=== PATIENT | male | born 1950 | race Caucasian/White ===

== ENCOUNTER 2022-07-08 08:03 | Inpatient (IN) | payer MEDICARE, MEDICAID ==
[~2022-07-08] VITALS: Ht 182.9 cm; Wt 95.8 kg
[~2022-07-08 08:03] MED LIST: ASPI1TAB20 PO; Atorvastatin Calcium PO; HYDR25TA4 PO; LISI-716 PO; MET25T PO
[2022-07-08] MEDS ORDERED: FUROSEMIDE 40 MG/4 ML VIAL IV ONE (08:45)
[2022-07-08 09:41] LABS: Basophils # (auto) 0.1 10 ^3/uL (0-0.2); Basophils % (auto) 0.9 % (0.0-2.0); Eosinophils # (auto) 0.3 10 ^3/uL (0-0.8); Eosinophils % (auto) 3.9 % (0.0-7.0); Hematocrit 31.4 % (41.0-53.0); Hemoglobin 10.5 g/dL (13.5-17.5); Lymphocytes # (auto) 0.5 10 ^3/uL (0.4-5.4); Lymphocytes % (auto) 7.6 % (10.0-50.0); Mean Corpuscular Hgb Conc. 33.5 g/dL (32.0-36.0); Mean Corpuscular Volume 92.4 fL (80.0-100.0); Monocytes # (auto) 0.9 10 ^3/uL (0-1.3); Monocytes % (auto) 13.3 % (0.0-12.0); Neutrophils # (auto) 5.1 10 ^3/uL (1.6-8.6); Neutrophils % (auto) 74.3 % (37.0-80.0); Red Blood Cells 3.39 10^6/uL (4.5-5.90); Red Cell Distribution Width 14.9 % (11.8-14.3); White Blood Cell 6.8 10^3/uL (4.4-10.8)
[2022-07-08 09:55] LABS: Albumin 3.2 g/dL (3.4-5.0); Calcium 8.1 mg/dL (8.5-10.1); Magnesium 2.6 mg/dL (1.6-2.6)
[2022-07-08 10:34] LABS: Bilirubin, Total 0.9 mg/dL (0.2-1.0); Total Protein 6.3 g/dL (6.4-8.2)
[2022-07-08] MEDS ORDERED: DEXTROSE (50%) 50ML SYRG IV PRN (13:30)
[2022-07-08] MEDS ORDERED: MORPHINE SULFATE INJ 2 MG/ml SYRG IV PRN (13:30)
[2022-07-08] MEDS ORDERED: ONDANSETRON HCL 4 MG/2 ML VIAL IV PRN (13:30)
[2022-07-08] MEDS: CLINDAMYCIN 300MG IV 50 ML IV SCH ×2 (14:00→22:21)
[2022-07-08] MEDS ORDERED: hydrALAZINE HCL 20 MG/ML VL IV PRN (15:45)
[2022-07-08] MEDS: InsuLIN REG 1unit/0.01ml Soln (100units/ml) SC SCH ×2 (17:00→22:00)
[2022-07-08] MEDS: ACCU-CHEK COMFORT CURVE STRIP VI SCH ×2 (17:12→22:22)
[2022-07-08] MEDS: NITROGLYCERIN 0.4 MG SL TAB SL PRN (20:19)
[2022-07-08] MEDS: ENOXAPARIN SOD 120 MG/0.8 ML SYRINGE SC SCH (21:05)
[2022-07-08] MEDS: METOPROLOL TARTRATE 25 MG TAB PO SCH (22:22)
[2022-07-08] MEDS: HYDROcodone-ACET 5/325MG TAB PO PRN (22:25)
[2022-07-08] MEDS: ATORVASTATIN 20 MG TAB PO SCH (22:25)
[2022-07-08 22:41] VITALS: BP 155/77
[2022-07-08] MEDS ORDERED: APIX5TAB PO (23:44)
[2022-07-09 05:00] VITALS: BP 126/58
[2022-07-09] MEDS: CLINDAMYCIN 300MG IV 50 ML IV SCH ×3 (05:35→21:44)
[2022-07-09 06:07] LABS: Basophils # (auto) 0.1 10 ^3/uL (0-0.2); Basophils % (auto) 1.2 % (0.0-2.0); Eosinophils # (auto) 0.4 10 ^3/uL (0-0.8); Eosinophils % (auto) 6.9 % (0.0-7.0); Hematocrit 30.4 % (41.0-53.0); Hemoglobin 10.4 g/dL (13.5-17.5); Lymphocytes # (auto) 0.5 10 ^3/uL (0.4-5.4); Lymphocytes % (auto) 9.8 % (10.0-50.0); Mean Corpuscular Hemoglobin 31.5 pg (28.0-32.0); Mean Corpuscular Hgb Conc. 34.2 g/dL (32.0-36.0); Mean Corpuscular Volume 92.1 fL (80.0-100.0); Monocytes # (auto) 0.8 10 ^3/uL (0-1.3); Monocytes % (auto) 14.1 % (0.0-12.0); Neutrophils # (auto) 3.8 10 ^3/uL (1.6-8.6); Nucleated Red Blood Cells % 0.1 %; Red Cell Distribution Width 14.8 % (11.8-14.3); White Blood Cell 5.6 10^3/uL (4.4-10.8)
[2022-07-09] MEDS: ACCU-CHEK COMFORT CURVE STRIP VI SCH ×4 (06:09→21:39)
[2022-07-09] MEDS: InsuLIN REG 1unit/0.01ml Soln (100units/ml) SC SCH ×4 (06:09→21:40)
[2022-07-09 06:31] LABS: Albumin 3.1 g/dL (3.4-5.0); BUN/Creatinine Ratio 20.3; Magnesium 2.7 mg/dL (1.6-2.6); Potassium 4.1 mmol/L (3.5-5.1)
[2022-07-09 06:34] LABS: Bilirubin, Total 0.8 mg/dL (0.2-1.0); Total Protein 6.1 g/dL (6.4-8.2)
[2022-07-09 08:00] VITALS: BP 127/57
[2022-07-09] MEDS: NITROGLYCERIN 0.4 MG SL TAB SL PRN ×3 (10:33→21:26)
[2022-07-09] MEDS: ENOXAPARIN SOD 120 MG/0.8 ML SYRINGE SC SCH ×2 (10:43→20:44)
[2022-07-09] MEDS: FUROSEMIDE 40 MG/4 ML VIAL IV SCH (10:43)
[2022-07-09] MEDS: ASPirin-EC 81 mg tab PO SCH (10:44)
[2022-07-09] MEDS: POTASSIUM CHL 20 Meq TABLET PO SCH (10:44)
[2022-07-09] MEDS: LISINOPRIL 10 MG TAB PO SCH (10:48)
[2022-07-09] MEDS: METOPROLOL TARTRATE 25 MG TAB PO SCH ×2 (10:48→21:31)
[2022-07-09 12:45] VITALS: BP 138/55
[2022-07-09] MEDS: HYDROcodone-ACET 5/325MG TAB PO PRN ×2 (14:07→21:29)
[2022-07-09 16:35] VITALS: BP 139/48
[2022-07-09] MEDS: ACETAMINOPHEN 325 MG TAB PO PRN (17:16)
[2022-07-09] MEDS: ATORVASTATIN 20 MG TAB PO SCH (21:30)
[2022-07-09 22:00] VITALS: BP 125/62
[2022-07-09] MEDS ORDERED: MUPIROCIN 2% OINT 15gm or 22gm FOR MRSA NARES EACHNOSTRI SCH (22:00)
[2022-07-09] MEDS: MUPIROCIN 2% OINT 15gm or 22gm FOR MRSA NARES EACHNOSTRI SCH (23:23)
[2022-07-10] MEDS: HYDROcodone-ACET 5/325MG TAB PO PRN ×3 (04:58→19:33)
[2022-07-10 05:00] VITALS: BP 118/68
[2022-07-10] MEDS: CLINDAMYCIN 300MG IV 50 ML IV SCH ×2 (05:00→15:01)
[2022-07-10] MEDS: ACCU-CHEK COMFORT CURVE STRIP VI SCH ×4 (06:42→20:58)
[2022-07-10] MEDS: InsuLIN REG 1unit/0.01ml Soln (100units/ml) SC SCH ×4 (06:42→20:56)
[2022-07-10] MEDS: ENOXAPARIN SOD 120 MG/0.8 ML SYRINGE SC SCH ×2 (08:46→20:22)
[2022-07-10 09:00] VITALS: BP 127/50
[2022-07-10] MEDS: ASPirin-EC 81 mg tab PO SCH (09:47)
[2022-07-10] MEDS: MUPIROCIN 2% OINT 15gm or 22gm FOR MRSA NARES EACHNOSTRI SCH ×2 (09:47→22:00)
[2022-07-10] MEDS: LISINOPRIL 10 MG TAB PO SCH (09:48)
[2022-07-10] MEDS: POTASSIUM CHL 20 Meq TABLET PO SCH (09:48)
[2022-07-10] MEDS: FUROSEMIDE 40 MG/4 ML VIAL IV SCH (09:49)
[2022-07-10] MEDS: METOPROLOL TARTRATE 25 MG TAB PO SCH ×2 (09:49→21:37)
[2022-07-10 12:41] VITALS: BP 101/45
[2022-07-10 16:41] VITALS: BP 108/48
[2022-07-10] MEDS ORDERED: VANCOMYCIN PER PHARMACY 0 MG IV SCH (18:45)
[2022-07-10] MEDS ORDERED: VANCOMYCIN 1GM/250ML 250 ML IV ONE (19:30)
[2022-07-10] MEDS: ZOLPIDEM TARTRATE 5 MG TAB PO PRN (21:36)
[2022-07-10] MEDS: ATORVASTATIN 20 MG TAB PO SCH (21:36)
[2022-07-10] MEDS: diphenhdrAMINE HCL 25 MG CAP PO PRN (21:40)
[2022-07-10 22:00] VITALS: BP 128/75
[2022-07-11 05:00] VITALS: BP 118/54
[2022-07-11 05:29] LABS: Basophils # (auto) 0.1 10 ^3/uL (0-0.2); Basophils % (auto) 1.2 % (0.0-2.0); Eosinophils # (auto) 0.3 10 ^3/uL (0-0.8); Eosinophils % (auto) 6.5 % (0.0-7.0); Hematocrit 31.1 % (41.0-53.0); Hemoglobin 10.6 g/dL (13.5-17.5); Lymphocytes # (auto) 0.6 10 ^3/uL (0.4-5.4); Lymphocytes % (auto) 10.8 % (10.0-50.0); Mean Corpuscular Hemoglobin 31.1 pg (28.0-32.0); Mean Corpuscular Volume 91.3 fL (80.0-100.0); Monocytes # (auto) 0.7 10 ^3/uL (0-1.3); Monocytes % (auto) 13.9 % (0.0-12.0); Neutrophils # (auto) 3.5 10 ^3/uL (1.6-8.6); Neutrophils % (auto) 67.6 % (37.0-80.0); Red Blood Cells 3.41 10^6/uL (4.5-5.90); Red Cell Distribution Width 14.7 % (11.8-14.3); White Blood Cell 5.2 10^3/uL (4.4-10.8)
[2022-07-11 05:40] LABS: Albumin 2.9 g/dL (3.4-5.0); Calcium 8.3 mg/dL (8.5-10.1); Potassium 4.2 mmol/L (3.5-5.1)
[2022-07-11 05:43] LABS: BUN/Creatinine Ratio 22.4; Bilirubin, Total 0.8 mg/dL (0.2-1.0); Total Protein 6.2 g/dL (6.4-8.2)
[2022-07-11] MEDS: ACCU-CHEK COMFORT CURVE STRIP VI SCH ×4 (06:19→21:52)
[2022-07-11] MEDS: InsuLIN REG 1unit/0.01ml Soln (100units/ml) SC SCH ×4 (06:20→21:52)
[2022-07-11] MEDS ORDERED: GIVE UN DILUTED IV ONE (08:00)
[2022-07-11] MEDS ORDERED: ADENOSINE IV ONE (08:00)
[2022-07-11] MEDS: ENOXAPARIN SOD 120 MG/0.8 ML SYRINGE SC SCH ×2 (08:46→20:37)
[2022-07-11 09:00] VITALS: BP 93/49
[2022-07-11] MEDS: FUROSEMIDE 40 MG/4 ML VIAL IV SCH (12:05)
[2022-07-11] MEDS: MUPIROCIN 2% OINT 15gm or 22gm FOR MRSA NARES EACHNOSTRI SCH ×2 (12:05→22:19)
[2022-07-11] MEDS: POTASSIUM CHL 20 Meq TABLET PO SCH (12:05)
[2022-07-11] MEDS: ASPirin-EC 81 mg tab PO SCH (12:05)
[2022-07-11] MEDS: NITROGLYCERIN 0.2MG/HR TOPICAL PATCH TD SCH (12:05)
[2022-07-11] MEDS: LISINOPRIL 10 MG TAB PO SCH (12:05)
[2022-07-11] MEDS: METOPROLOL TARTRATE 25 MG TAB PO SCH ×2 (12:05→21:49)
[2022-07-11 13:00] VITALS: BP 144/73
[2022-07-11] MEDS: HYDROcodone-ACET 5/325MG TAB PO PRN ×2 (15:11→20:59)
[2022-07-11 16:59] VITALS: BP 148/58
[2022-07-11] MEDS: VANCOMYCIN 1GM/250ML 250 ML IV SCH (18:21)
[2022-07-11] MEDS: ZOLPIDEM TARTRATE 5 MG TAB PO PRN (21:49)
[2022-07-11] MEDS: ATORVASTATIN 20 MG TAB PO SCH (21:49)
[2022-07-11 22:00] VITALS: BP 120/82
[2022-07-12] MEDS: cefTRIAXone 1GM/50ML D5W 50 ML IV SCH ×2 (00:25→20:59)
[2022-07-12 05:00] VITALS: BP 124/66
[2022-07-12] MEDS: HYDROcodone-ACET 5/325MG TAB PO PRN ×2 (06:16→18:25)
[2022-07-12] MEDS: InsuLIN REG 1unit/0.01ml Soln (100units/ml) SC SCH ×4 (06:16→20:59)
[2022-07-12] MEDS: ACCU-CHEK COMFORT CURVE STRIP VI SCH ×4 (06:16→23:10)
[2022-07-12 08:15] VITALS: BP 144/70
[2022-07-12] MEDS: VANCOMYCIN 1GM/250ML 250 ML IV SCH (09:21)
[2022-07-12] MEDS: ENOXAPARIN SOD 120 MG/0.8 ML SYRINGE SC SCH (09:22)
[2022-07-12] MEDS: ASPirin-EC 81 mg tab PO SCH (09:24)
[2022-07-12] MEDS: POTASSIUM CHL 20 Meq TABLET PO SCH (09:26)
[2022-07-12] MEDS: FUROSEMIDE 40 MG/4 ML VIAL IV SCH (09:27)
[2022-07-12] MEDS: METOPROLOL TARTRATE 25 MG TAB PO SCH ×2 (09:27→22:00)
[2022-07-12] MEDS: LISINOPRIL 10 MG TAB PO SCH (09:28)
[2022-07-12] MEDS: NITROGLYCERIN 0.2MG/HR TOPICAL PATCH TD SCH (10:00)
[2022-07-12] MEDS: MUPIROCIN 2% OINT 15gm or 22gm FOR MRSA NARES EACHNOSTRI SCH ×2 (11:16→23:10)
[2022-07-12 12:15] VITALS: BP 138/83
[2022-07-12 16:15] VITALS: BP 125/68
[2022-07-12 22:00] VITALS: BP 129/67
[2022-07-12] MEDS: ZOLPIDEM TARTRATE 5 MG TAB PO PRN (22:00)
[2022-07-12] MEDS: ATORVASTATIN 20 MG TAB PO SCH (23:10)
[2022-07-12] MEDS: ENOXAPARIN SOD 150 MG/1 ML SYRINGE SC SCH (23:11)
[2022-07-13 05:00] VITALS: BP 161/55
[2022-07-13 05:13] LABS: Basophils # (auto) 0.1 10 ^3/uL (0-0.2); Basophils % (auto) 1.4 % (0.0-2.0); Eosinophils # (auto) 0.4 10 ^3/uL (0-0.8); Eosinophils % (auto) 5.6 % (0.0-7.0); Hemoglobin 11.2 g/dL (13.5-17.5); Lymphocytes # (auto) 0.9 10 ^3/uL (0.4-5.4); Lymphocytes % (auto) 14.1 % (10.0-50.0); Mean Corpuscular Hemoglobin 31.1 pg (28.0-32.0); Mean Corpuscular Hgb Conc. 33.9 g/dL (32.0-36.0); Mean Corpuscular Volume 91.7 fL (80.0-100.0); Monocytes # (auto) 0.8 10 ^3/uL (0-1.3); Monocytes % (auto) 13.1 % (0.0-12.0); Neutrophils # (auto) 4.2 10 ^3/uL (1.6-8.6); Neutrophils % (auto) 65.8 % (37.0-80.0); Nucleated Red Blood Cells % 0.1 %; Red Cell Distribution Width 14.9 % (11.8-14.3); White Blood Cell 6.4 10^3/uL (4.4-10.8)
[2022-07-13 05:24] LABS: Albumin 3.2 g/dL (3.4-5.0); Calcium 8.2 mg/dL (8.5-10.1); Phosphorus 2.8 mg/dL (2.5-4.90); Potassium 4.9 mmol/L (3.5-5.1)
[2022-07-13] MEDS: HYDROcodone-ACET 5/325MG TAB PO PRN ×4 (06:12→20:41)
[2022-07-13] MEDS: ACCU-CHEK COMFORT CURVE STRIP VI SCH ×2 (07:00→12:03)
[2022-07-13] MEDS: InsuLIN REG 1unit/0.01ml Soln (100units/ml) SC SCH ×2 (07:00→12:04)
[2022-07-13 09:00] VITALS: BP 142/55
[2022-07-13] MEDS: POTASSIUM CHL 20 Meq TABLET PO SCH (10:15)
[2022-07-13] MEDS: ASPirin-EC 81 mg tab PO SCH (10:15)
[2022-07-13] MEDS: METOPROLOL TARTRATE 25 MG TAB PO SCH ×2 (10:16→22:00)
[2022-07-13] MEDS: LISINOPRIL 10 MG TAB PO SCH (10:16)
[2022-07-13] MEDS: ENOXAPARIN SOD 150 MG/1 ML SYRINGE SC SCH ×2 (10:17→22:01)
[2022-07-13] MEDS: VANCOMYCIN 1GM/250ML 250 ML IV SCH (10:17)
[2022-07-13] MEDS: FUROSEMIDE 40 MG/4 ML VIAL IV SCH (10:17)
[2022-07-13] MEDS: MUPIROCIN 2% OINT 15gm or 22gm FOR MRSA NARES EACHNOSTRI SCH ×2 (10:25→21:57)
[2022-07-13] MEDS: NITROGLYCERIN 0.2MG/HR TOPICAL PATCH TD SCH (10:25)
[2022-07-13] MEDS: diphenhdrAMINE HCL 25 MG CAP PO PRN ×2 (10:36→22:41)
[2022-07-13 17:00] VITALS: BP 122/60
[2022-07-13] MEDS: ZOLPIDEM TARTRATE 5 MG TAB PO PRN (20:39)
[2022-07-13] MEDS: cefTRIAXone 1GM/50ML D5W 50 ML IV SCH (20:41)
[2022-07-13] MEDS: ATORVASTATIN 20 MG TAB PO SCH (21:58)
[2022-07-13 22:00] VITALS: BP 138/52
[2022-07-14] MEDS: HYDROcodone-ACET 5/325MG TAB PO PRN ×3 (02:25→20:16)
[2022-07-14] MEDS: ACETAMINOPHEN 325 MG TAB PO PRN ×2 (04:54→22:07)
[2022-07-14] MEDS: diphenhdrAMINE HCL 25 MG CAP PO PRN (04:55)
[2022-07-14 05:00] VITALS: BP 129/66
[2022-07-14 09:16] VITALS: BP 158/41
[2022-07-14] MEDS: VANCOMYCIN 1GM/250ML 250 ML IV SCH (12:14)
[2022-07-14] MEDS: FUROSEMIDE 40 MG/4 ML VIAL IV SCH (12:15)
[2022-07-14] MEDS: ASPirin-EC 81 mg tab PO SCH (12:15)
[2022-07-14] MEDS: POTASSIUM CHL 20 Meq TABLET PO SCH (12:16)
[2022-07-14] MEDS: METOPROLOL TARTRATE 25 MG TAB PO SCH ×2 (12:16→21:49)
[2022-07-14] MEDS: LISINOPRIL 10 MG TAB PO SCH (12:17)
[2022-07-14] MEDS: MUPIROCIN 2% OINT 15gm or 22gm FOR MRSA NARES EACHNOSTRI SCH (12:19)
[2022-07-14] MEDS: ENOXAPARIN SOD 150 MG/1 ML SYRINGE SC SCH ×2 (12:19→21:50)
[2022-07-14] MEDS: POLYETHYLENE GLYCOL 17 GM PWDR PO SCH (12:30)
[2022-07-14 12:41] VITALS: BP 152/42
[2022-07-14 16:41] VITALS: BP_SYST 105; BP_SYST 135; BP_DIAS 68; BP_DIAS 85
[2022-07-14] MEDS: cefTRIAXone 1GM/50ML D5W 50 ML IV SCH (21:48)
[2022-07-14] MEDS: ATORVASTATIN 20 MG TAB PO SCH (21:48)
[2022-07-14] MEDS: ZOLPIDEM TARTRATE 5 MG TAB PO PRN (21:49)
[2022-07-14 22:00] VITALS: BP 130/51
[2022-07-15] VITALS (8 sets, daily range): BP systolic 76–127; BP diastolic 30–56
[2022-07-15] MEDS: HYDROcodone-ACET 5/325MG TAB PO PRN ×3 (02:33→15:33)
[2022-07-15] MEDS: ACETAMINOPHEN 325 MG TAB PO PRN ×3 (04:15→18:34)
[2022-07-15 06:04] LABS: Albumin 2.5 g/dL (3.4-5.0); BUN/Creatinine Ratio 28.4; Bilirubin, Total 1.4 mg/dL (0.2-1.0); Calcium 7.9 mg/dL (8.5-10.1); Total Protein 5.2 g/dL (6.4-8.2)
[2022-07-15 07:23] LABS: Basophils # (auto) 0.1 10 ^3/uL (0-0.2); Basophils % (auto) 0.5 % (0.0-2.0); Eosinophils # (auto) 0 10 ^3/uL (0-0.8); Eosinophils % (auto) 0.1 % (0.0-7.0); Lymphocytes # (auto) 1.3 10 ^3/uL (0.4-5.4); Monocytes # (auto) 1.4 10 ^3/uL (0-1.3); Nucleated Red Blood Cells % 0.1 %; Red Cell Distribution Width 15.2 % (11.8-14.3)
[2022-07-15 07:25] LABS: Hematocrit 19.7 % (41.0-53.0); Lymphocytes % (auto) 9.9 % (10.0-50.0); Mean Corpuscular Hemoglobin 30.2 pg (28.0-32.0); Mean Corpuscular Hgb Conc. 32.3 g/dL (32.0-36.0); Mean Corpuscular Volume 93.6 fL (80.0-100.0); Monocytes % (auto) 10.4 % (0.0-12.0); Neutrophils # (auto) 10.7 10 ^3/uL (1.6-8.6); Neutrophils % (auto) 79.1 % (37.0-80.0); Red Blood Cells 2.11 10^6/uL (4.5-5.90); White Blood Cell 13.5 10^3/uL (4.4-10.8)
[2022-07-15 07:34] LABS: Hemoglobin 6.4 g/dL (13.5-17.5)
[2022-07-15] MEDS: diphenhdrAMINE HCL 25 MG CAP PO PRN (09:59)
[2022-07-15] MEDS: POLYETHYLENE GLYCOL 17 GM PWDR PO SCH (09:59)
[2022-07-15] MEDS: METOPROLOL TARTRATE 25 MG TAB PO SCH ×2 (10:00→21:21)
[2022-07-15] MEDS ORDERED: PANTOPRAZOLE 40 MG TAB PO SCH (10:00)
[2022-07-15] MEDS: LISINOPRIL 10 MG TAB PO SCH (10:00)
[2022-07-15] MEDS: FUROSEMIDE 40 MG/4 ML VIAL IV SCH ×2 (10:00→21:41)
[2022-07-15 10:02] LABS: Hematocrit 18.6 % (41.0-53.0)
[2022-07-15 11:09] LABS: Hemoglobin 6.4 g/dL (13.5-17.5)
[2022-07-15] MEDS: PANTOPRAZOLE 40 MG/10 ML VIAL INJ IV SCH ×2 (15:39→21:21)
[2022-07-15] MEDS ORDERED: SUCRALFATE 1 GM/10 ML ORAL SUSP PO SCH (17:00)
[2022-07-15 20:15] LABS: Basophils # (auto) 0.1 10 ^3/uL (0-0.2); Eosinophils # (auto) 0 10 ^3/uL (0-0.8); Monocytes # (auto) 1.6 10 ^3/uL (0-1.3); Monocytes % (auto) 9.7 % (0.0-12.0); Nucleated Red Blood Cells % 0.4 %
[2022-07-15 20:16] LABS: Basophils % (auto) 0.4 % (0.0-2.0); Hematocrit 18.8 % (41.0-53.0); Lymphocytes # (auto) 1.1 10 ^3/uL (0.4-5.4); Lymphocytes % (auto) 6.6 % (10.0-50.0); Mean Corpuscular Hemoglobin 30.8 pg (28.0-32.0); Mean Corpuscular Hgb Conc. 33.6 g/dL (32.0-36.0); Mean Corpuscular Volume 91.6 fL (80.0-100.0); Neutrophils # (auto) 13.8 10 ^3/uL (1.6-8.6); Neutrophils % (auto) 83.3 % (37.0-80.0); Red Blood Cells 2.05 10^6/uL (4.5-5.90); Red Cell Distribution Width 15.3 % (11.8-14.3); White Blood Cell 16.6 10^3/uL (4.4-10.8)
[2022-07-15 20:33] LABS: Hemoglobin 6.3 g/dL (13.5-17.5)
[2022-07-15] MEDS ORDERED: FUROSEMIDE 40 MG/4 ML VIAL IV ONE (22:15)
== END 2022-07-15 22:37 | DRG 291 ==
LOC: ER 08:03 → EDBD 08:03 → TELE 13:31 → TELE-EAST 22:20 → TELE-WESTW 07-10 22:35
PROVIDERS: ADMIT Nurse Practitioner Family; ATTEND Nurse Practitioner Family
PROC: 30233N1 Transfusion of Nonautologous Red Blood Cells into Peripheral Vein, Percutaneous Approach (ICD-10-PCS; principal; 2022-07-15)
PROC: 05HD33Z Insertion of Infusion Device into Right Cephalic Vein, Percutaneous Approach (ICD-10-PCS; 2022-07-15)
PROC: B54MZZA Ultrasonography of Right Upper Extremity Veins, Guidance (ICD-10-PCS; 2022-07-15)
PROC: 5A09357 Assistance with Respiratory Ventilation, Less than 24 Consecutive Hours, Continuous Positive Airway Pressure (ICD-10-PCS; 2022-07-15)
DX: I13.0 Hypertensive heart and chronic kidney disease with heart failure and stage 1 through stage 4 chronic kidney disease, or unspecified chronic kidney disease (principal); I50.23 Acute on chronic systolic (congestive) heart failure; J96.21 Acute and chronic respiratory failure with hypoxia; L03.115 Cellulitis of right lower limb; L03.116 Cellulitis of left lower limb; I69.354 Hemiplegia and hemiparesis following cerebral infarction affecting left non-dominant side; N18.4 Chronic kidney disease, stage 4 (severe); R78.81 Bacteremia; Z68.42 Body mass index [BMI] 45.0-49.9, adult; Z66 Do not resuscitate; Z20.822 Contact with and (suspected) exposure to COVID-19; E11.22 Type 2 diabetes mellitus with diabetic chronic kidney disease; D63.8 Anemia in other chronic diseases classified elsewhere; I25.10 Atherosclerotic heart disease of native coronary artery without angina pectoris; I48.91 Unspecified atrial fibrillation; E11.65 Type 2 diabetes mellitus with hyperglycemia; S30.1XXA Contusion of abdominal wall, initial encounter; X58.XXXA Exposure to other specified factors, initial encounter; E66.9 Obesity, unspecified; E78.5 Hyperlipidemia, unspecified; G40.909 Epilepsy, unspecified, not intractable, without status epilepticus; Z79.01 Long term (current) use of anticoagulants; Z79.82 Long term (current) use of aspirin; Z79.899 Other long term (current) drug therapy; Z82.49 Family history of ischemic heart disease and other diseases of the circulatory system; Y93.89 Activity, other specified; Y92.89 Other specified places as the place of occurrence of the external cause; Y99.8 Other external cause status; Z95.0 Presence of cardiac pacemaker; Z95.5 Presence of coronary angioplasty implant and graft; I25.2 Old myocardial infarction
CPT/HCPCS: 36415; 71045; 74176; 78452; 80053; 80069; 80202; 82565; 82962; 83735; 83880; 84484; 85014; 85018; 85025; 86850; 86900; 86901; 86920; 87040; 87077; 87081; 87186; 87426; 93005; 93017; 93306; 93925; 93970; 94660; 96372; 96374; 97163; C9113; G0378; J0153; J0696; J2405; J3490